=== PATIENT | female | born 1995 | race Hispanic/Latino ===

== ENCOUNTER 2021-04-22 20:15 | Emergency (ER) | payer OTHER, SELFPAY ==
[2021-04-22 20:17] VITALS: BP 131/74; PULSE 82; RESP 18; TEMP 36.5; O2SAT 99
[2021-04-22 22:35] VITALS: BP 113/65; PULSE 80; RESP 17; O2SAT 100
[2021-04-22 23:06] LABS: Basophils Percent Auto 0.5 % (0.2-1.2); Eosinophils Absolute Auto 0.2 K/mm3 (0-0.3); Eosinophils Percent Auto 1.9 % (0-4.4); Hematocrit 34.8 % (37.0-47.0); Immature Granulocyte Absolute 0.01 K/mm3 (0.00-0.031); Immature Granulocyte Percent A 0.1 % (0-0.5); Lymphocytes Absolute Auto 3.39 K/mm3 (0.9-3.2); Lymphocytes Percent Auto 40.9 % (18.3-44.2); Mean Corpuscular HGB Conc 34.5 g/dl (32-36); Mean Corpuscular Hemoglobin 29.8 pg (26-34); Mean Corpuscular Volume 86.4 fl (80-100); Mean Platelet Volume 10.3 fl (7.4-10.4); Monocytes Absolute Auto 0.4 K/mm3 (0.1-0.6); Monocytes Percent Auto 5.3 % (2.6-8.5); Neutrophils Absolute Auto 4.3 K/mm3 (1.3-6.7); Neutrophils Percent Auto 51.3 % (45.5-73.1); Platelet Count Result 217 k/mm3 (150-375); Red Blood Count 4.03 M/mm3 (4.2-5.4); Red Cell Distribution Width 12.3 % (11.5-14.5); White Blood Count 8.3 K/mm3 (4.5-10.0)
--- NOTE | 2021-04-22 23:28 | ED.GENADULT ---
HPI - General Adult General Chief complaint: Urogenital-Female Stated complaint: vaginal bleeding Time Seen by Provider: 04/22/21 22:28 History of Present Illness HPI narrative: Patient a 26-year-old female presents the emergency department with vaginal bleeding. The patient reports that she has not had a period in some time and saw her [employer] and they gave her a course of Provera. Patient states that she is started having bleeding and reports she is had some clots or about quarter sized and reports that she has been saturating a overnight standard pad every hour. The patient states that she is not having any lightheadedness does not feel as though she is going to pass out the patient states that she did not call her [employer] today Related Data Allergies Allergy/AdvReac Type Severity Reaction Status Date / Time No Known Allergies Allergy Unknown Unverified 06/02/15 21:26 Review of Systems Review of Systems: A 10 system review of systems was completed on the patient and is negative except for what is stated in the HPI. Nursing and ancillary documentation was reviewed. Exam Narrative: GENERAL: Well-appearing, well-nourished, and in no acute distress. HEAD: Normocephalic, atraumatic. EYES: PERRLA and EOMI. ENT: Nares clear, no rhinorrhea or epistaxis. Mucous membranes moist. NECK: Supple. CHEST: Clear to auscultation. No respiratory distress. HEART: Regular rate and rhythm. No murmur heard. Normal peripheral pulses. ABDOMEN: Soft, nontender, nondistended, normal active bowel sounds. EXTREMITIES: Normal range of motion. No edema. SKIN: Warm, dry, no rash. NEURO: No focal deficits. Alert and oriented x3. PSYCH: Normal mood and affect. Course Vital Signs Vital signs: Vital Signs Temperature 36.5 C 04/22/21 20:17 Pulse Rate 82 04/22/21 20:17 Respiratory Rate 18 04/22/21 20:17 Blood Pressure 131/74 04/22/21 20:17 Pulse Oximetry 99 04/22/21 20:17 Temperature 36.5 C 04/22/21 20:17 Pulse Rate 89 04/23/21 00:45 Respiratory Rate 19 04/23/21 00:45 Blood Pressure 116/53 L 04/23/21 00:45 Pulse Oximetry 100 04/23/21 00:45 Medical Decision Making Vital Signs Vital Signs: Vital Signs Temperature 36.5 C 04/22/21 20:17 Pulse Rate 82 04/22/21 20:17 Respiratory Rate 18 04/22/21 20:17 Blood Pressure 131/74 04/22/21 20:17 Pulse Oximetry 99 04/22/21 20:17 Temperature 36.5 C 04/22/21 20:17 Pulse Rate 89 04/23/21 00:45 Respiratory Rate 19 04/23/21 00:45 Blood Pressure 116/53 L 04/23/21 00:45 Pulse Oximetry 100 04/23/21 00:45 Lab Data Result diagrams: 04/22/21 22:54 04/22/21 22:54 Labs: Lab Results 04/22/21 04/22/21 04/23/21 Range/Units 22:54 22:54 00:46 WBC 8.3 (4.5-10.0) K/mm3 RBC 4.03 L (4.2-5.4) M/mm3 Hgb 12.0 (12.0-15.0) g/dL Hct 34.8 L (37.0-47.0) % MCV 86.4 (80-100) fl MCH 29.8 (26-34) pg MCHC 34.5 (32-36) g/dl RDW 12.3 (11.5-14.5) % Plt Count 217 (150-375) k/mm3 MPV 10.3 (7.4-10.4) fl Immature Gran % (Auto) 0.1 (0-0.5) % Neut % (Auto) 51.3 (45.5-73.1) % Lymph % (Auto) 40.9 (18.3-44.2) % Kidder % (Auto) 5.3 (2.6-8.5) % Eos % (Auto) 1.9 (0-4.4) % Baso % (Auto) 0.5 (0.2-1.2) % Lymph # (Auto) 3.39 H (0.9-3.2) K/mm3 Kidder # (Auto) 0.4 (0.1-0.6) K/mm3 Eos # (Auto) 0.2 (0-0.3) K/mm3 Baso # (Auto) 0.0 (0.0-0.1) K/mm3 Abs Immat Gran (auto) 0.01 (0.00-0.031) K/mm3 Absolute Neuts (auto) 4.3 (1.3-6.7) K/mm3 Absolute Nucleated RBC 0.0 (0.0-0.012) K/mm3 Nucleated RBC % 0.0 (0.0-0.2) % Sodium 136 L (137-145) mmol/L Potassium 4.0 (3.4-5.0) mmol/L Chloride 101 (98-107) mmol/L Carbon Dioxide 26 (22-30) mmol/L Anion Gap 9 (8-16) mmol/L BUN 10 (7-17) mg/dL Creatinine 0.70 (0.7-1.0) mg/dL Estim Creat Clear Calc 119 ml/min Estimated GFR > 60 (59 - ) Glucose 109 (6
[2021-04-22 23:39] LABS: Alanine Aminotransferase 30 U/L (4-35); Albumin Level 4.5 g/dL (3.5-5.1); Alkaline Phosphatase 72 U/L (38-126); Anion Gap 9 mmol/L (8-16); Aspartate Amino Transferase 34 U/L (14-36); Bilirubin,Total 0.4 mg/dL (0.2-1.3); Blood Urea Nitrogen 10 mg/dL (7-17); Calcium 9.4 mg/dL (8.4-10.2); Carbon Dioxide 26 mmol/L (22-30); Chloride 101 mmol/L (98-107); Estimated CRCL calculation 119 ml/min; Estimated Glomerular Filt Rate > 60; Glucose 109 mg/dL (65-110); Sodium 136 mmol/L (137-145)
[2021-04-23 00:45] VITALS: BP 116/53; PULSE 89; RESP 19; O2SAT 100
[2021-04-23 01:07] LABS: Add Urine Microscopic? YES; Appearance Urine Cloudy (Clear); Bilirubin Urine Negative (Negative); Blood Urine 3+ (Negative); Color Urine Amber (Yellow); Glucose Urine UA Negative (Negative); Ketones Urine Trace mg/dL (Negative); Leukocyte Esterase Ur Trace LEU/UL (Negative); Mucus Urine Heavy /lpf; Nitrate Urine Negative (Negative); Protein Urine 2+ mg/dL (Negative); RBC Urine >75 /hpf (0-2); Urobilinogen Urine Negative mg/dL (<2.0); WBC Clumps Urine Present /HPF; WBC Urine >75 /hpf
[2021-04-23] MEDS: CEPHALEXIN 500 MG CAPSULE PO (01:20)
== END 2021-04-23 01:29 | disposition home or self-care (01) ==
PROVIDERS: Emergency Provider Emergency Medicine
DX: N93.8 Other specified abnormal uterine and vaginal bleeding (principal); N39.0 Urinary tract infection, site not specified
CPT/HCPCS: 36415; 80053; 81001; 81025; 85025; 87086; 87088; 99283; A9270